=== PATIENT | female | born 1955 | race Caucasian/White ===

== ENCOUNTER 2019-07-20 14:46 | Emergency (ER) | payer BC ==
[2019-07-20] MEDS ORDERED: Tetan/Diph/Pertus SYR(Tdap)* 0.5 ML SYR(BOOSTRIX) use SYR contains LATEX IM ONE (16:09)
[2019-07-20] MEDS ORDERED: CEFTRIAXONE IVPB ONE (16:09)
[2019-07-20] MEDS ORDERED: NS 0.9% IVPB ONE (16:09)
[2019-07-20 16:25] VITALS: BP 113/66
[2019-07-20] MEDS ORDERED: cefTRIAXone VIAL(*) 1,000 MG VIAL ONE (16:29)
--- NOTE | 2019-07-20 17:07 | UC ---
Lower Extremity/Ankle HPI - HPI Summary HPI Summary: 63 yo female abraded her right lower leg on metal 2-3 days ago started getting red around abrasion 48 hour ago now most of lower leg red and swollen feverish nausea and vomiting yesterday now tolerating PO ok no CP or SOB no know covid contacts My exam done in PPE gear - History of Current Complaint Chief Complaint: UCSkin Stated Complaint: RT LEG PAIN Time Seen by Provider: 07/20/19 15:54 Hx Obtained From: Patient Onset/Duration: Sudden Onset, Lasting Days Severity Initially: Mild Severity Currently: None Pain Intensity: 0 - at rest Aggravating Factor(s): Standing, Ambulation Able to Bear Weight: Yes - with limp Legs: 1 - abraided area 2 - swollen and bright red to this level - Allergies/Home Medications Allergies/Adverse Reactions: Allergies Allergy/AdvReac Type Severity Reaction Status Date / Time aspirin Allergy Hives Verified 07/20/19 15:51 Perfume Allergy Coughing Verified 07/20/19 15:52 Begins with 'S' Allergy Hives, "20 Uncoded 07/20/19 15:52 yrs ago" Home Medications: Home Medications Metoprolol Tartrate 100 mg PO BID 01/03/13 [History Confirmed 07/20/19] Acetaminophen [Eq Acetaminophen] 975 mg PO Q6H PRN 09/02/14 [History Confirmed 07/20/19] Cephalexin CAP* [Keflex CAP*] 500 mg PO QID #28 cap 07/20/19 [Rx] Lisinopril/Hydrochlorothiazide [Lisinopril-Hctz 20-25 mg Tab] 1 each PO DAILY [History Confirmed 07/20/19] Lovastatin [Altoprev] 40 mg PO QPM 07/20/19 [History Confirmed 07/20/19] Omeprazole 20 mg PO DAILY 07/20/19 [History Confirmed 07/20/19] PMH/Surg Hx/FS Hx/Imm Hx Previously Healthy: Yes Endocrine History: Dyslipidemia Cardiovascular History: Hypertension - Surgical History Surgical History: None - Family History Known Family History: Positive: Hypertension - Social History Alcohol Use: None Substance Use Type: None Smoking Status (MU): Never Smoked Tobacco - Immunization History Most Recent Tetanus Shot: 2008 Review of Systems All Other Systems Reviewed And Are Negative: Yes Constitutional: Positive: Chills Skin: Positive: Negative Eyes: Positive: Negative ENT: Positive: Negative Respiratory: Positive: Cough - chronic and unchanged Cardiovascular: Positive: Negative Gastrointestinal: Positive: Negative Genitourinary: Positive: Negative Motor: Positive: Negative Neurovascular: Positive: Negative Musculoskeletal: Positive: Negative Neurological/Mental Status: Positive: Negative Psychological: Positive: Negative Physical Exam Triage Information Reviewed: Yes Appearance: Well-Appearing, No Pain Distress, Well-Nourished Vital Signs: Initial Vital Signs Temp 100.1 F 07/20/19 15:05 Pulse 70 07/20/19 15:05 Resp 24 07/20/19 15:05 BP 113/66 07/20/19 15:05 Pulse Ox 99 07/20/19 15:05 Vital Signs Reviewed: Yes Eyes: Positive: Conjunctiva Clear ENT: Positive: Hearing grossly normal, Uvula midline. Negative: Nasal congestion, Nasal drainage, Tonsillar swelling, Tonsillar exudate, Dental tenderness, Sinus tenderness Dental Exam: Normal Neck: Positive: Supple, Nontender, No Lymphadenopathy Respiratory: Positive: Lungs clear, Normal breath sounds, No respiratory distress Cardiovascular: Positive: RRR, No Murmur Musculoskeletal: Positive: Edema @ - RLE Neurological: Positive: Alert Psychological Exam: Normal Skin Exam: Normal Lower Extremity Course/Dx - Differential Dx/Diagnosis Provider Diagnosis: Cellulitis of right leg Discharge ED - Sign-Out/Discharge Documenting (check all that apply): Patient Departure All imaging exams completed and their final reports reviewed: No Studies - Discharge Plan Condition: Stable Disposition: HOME Patient Education Materials: Cellulitis (ED) Referrals: Nito Valdez PA [Primary Care Provider] - 3 Days Additional Instructions: TO ER FOR NEW OR WORSENING SYMPTOMS recheck in 3 days - Billing Disposition and Condition Condition: STABLE Disposition: Home
[2019-07-20] MEDS ORDERED: Acetaminophen TAB* 325 MG PO ONE (17:22)
== END 2019-07-20 18:00 | disposition home or self-care (01) ==
LOC: UCCORT 14:46
DX: L03.115 Cellulitis of right lower limb (principal); Z23 Encounter for immunization; E78.5 Hyperlipidemia, unspecified; I10 Essential (primary) hypertension; Z79.899 Other long term (current) drug therapy; Z88.6 Allergy status to analgesic agent; Z91.09 Other allergy status, other than to drugs and biological substances
CPT/HCPCS: 90471; 90715; 96365; 99212; A9270-GY; G0463; J0696